=== PATIENT | male | born 1965 | race African-American/Black ===

== ENCOUNTER 2021-01-07 09:43 | Inpatient (IN) ==
[2021-01-07] MEDS ORDERED: DEXTROSE 50% 25 GM/50 ML VIAL IV PRN (12:27)
[2021-01-07] MEDS ORDERED: ONDANSETRON 4 MG/2 ML VIAL IV PRN (12:32)
[2021-01-07 13:06] LABS: Basophils # 0.1 10*3/uL (0.0-0.2); Basophils % 1.4 % (0.0-0.8); Eosinophils % 0.4 % (0.00-10.9); Hematocrit 49.8 VOL% (42.0-52.0); Hemoglobin 17.6 GM/DL (14.0-18.0); Immature Granulocytes % 0.5 %; Immature Granulocytes Absolute 0.05 #; Lymphocytes # 1.5 10*3/uL (1.4-4.0); Lymphocytes % 14.8 % (21.2-54.2); Mean Corpuscular HGB Conc 35.3 GM/DL (32-36); Mean Corpuscular Volume 86.3 FL (87-102); Mean Platelet Volume 9.5 FL (9.6-12.0); Monocytes % 8.8 % (1.7-12.7); NRBC # 0.04 10*3/uL; Neutrophils % 74.1 % (38.7-73.9); Platelet Count 241 T/CUMM (130-400); Red Blood Count 5.77 MC/CUMM (3.8-5.5); White Blood Count 10.1 T/CUMM (4-12)
[2021-01-07 13:29] LABS: Albumin 3.5 G/DL (3.4-5.0); Bilirubin,Total 0.8 MG/DL (0.2-1.0); Osmolality,Calculated 265.5 MOS/KG (273-304); Potassium 4.3 MMOL/L (3.5-5.1); Total Protein 8.2 G/DL (6.4-8.2)
[2021-01-07] MEDS: FUROSEMIDE 40 MG/4 ML VIAL IV SCH (15:32)
[2021-01-07] MEDS: LEVOFLOXACIN INJ 750 MG in PREMIX 1 EACH IV SCH (15:33)
[2021-01-07] MEDS ORDERED: hydrALAZINE 20 MG/1 ML VIAL IV PRN (16:31)
[2021-01-07] MEDS: METOPROLOL TARTRATE 50 MG TABLET PO SCH (20:41)
[2021-01-07] MEDS: allopurinoL 100 MG TABLET PO SCH (20:41)
[2021-01-07] MEDS: ACETAMINOPHEN 325 MG TABLET PO PRN (20:46)
[2021-01-07] MEDS ORDERED: carvediloL 3.125 MG TABLET PO SCH (21:00)
[2021-01-08 05:36] LABS: Basophils # 0.1 10*3/uL (0.0-0.2); Basophils % 1.1 % (0.0-0.8); Eosinophils % 0.3 % (0.00-10.9); Hematocrit 48.1 VOL% (42.0-52.0); Hemoglobin 17.1 GM/DL (14.0-18.0); Immature Granulocytes % 0.5 %; Immature Granulocytes Absolute 0.05 #; Lymphocytes # 1.6 10*3/uL (1.4-4.0); Lymphocytes % 15.6 % (21.2-54.2); Mean Corpuscular HGB Conc 35.6 GM/DL (32-36); Mean Corpuscular Volume 85.6 FL (87-102); Mean Platelet Volume 10.3 FL (9.6-12.0); Monocytes % 11.6 % (1.7-12.7); NRBC # 0.04 10*3/uL; Neutrophils % 70.9 % (38.7-73.9); Platelet Count 207 T/CUMM (130-400); Red Blood Count 5.62 MC/CUMM (3.8-5.5); Red Cell Distribution Width 13.7 % (9.3-17.3); White Blood Count 10.4 T/CUMM (4-12)
[2021-01-08 05:55] LABS: Calcium 8.8 MG/DL (8.5-10.1); Osmolality,Calculated 265.4 MOS/KG (273-304); Potassium 3.3 MMOL/L (3.5-5.1)
[2021-01-08 05:59] LABS: Albumin 2.9 G/DL (3.4-5.0); Bilirubin,Direct 0.25 MG/DL (0.0-0.20); Bilirubin,Indirect 1.4 MG/DL (0.0-1.0); Bilirubin,Total 1.6 MG/DL (0.2-1.0); Total Protein 7.3 G/DL (6.4-8.2)
[2021-01-08] MEDS ORDERED: POTASSIUM CHLORIDE 20 MEQ TABLET PO PRN (08:29)
[2021-01-08] MEDS ORDERED: LISINOPRIL/HCTZ 20-25 MG TABLET PO SCH (09:00)
[2021-01-08] MEDS ORDERED: amLODIPine 5 MG TABLET PO SCH (09:00)
[2021-01-08] MEDS: FUROSEMIDE 40 MG/4 ML VIAL IV SCH ×2 (09:16→15:24)
[2021-01-08] MEDS: LEVOFLOXACIN INJ 750 MG in PREMIX 1 EACH IV SCH (09:19)
[2021-01-08] MEDS: allopurinoL 100 MG TABLET PO SCH ×2 (09:19→20:32)
[2021-01-08] MEDS: METOPROLOL TARTRATE 50 MG TABLET PO SCH (09:19)
[2021-01-08] MEDS ORDERED: POTASSIUM CHLORIDE 20 MEQ TABLET PO ONE (11:00)
[2021-01-08] MEDS: SPIRONOLACTONE 25 MG TABLET PO SCH (11:30)
[2021-01-08] MEDS: ACETAMINOPHEN 325 MG TABLET PO PRN (15:24)
[2021-01-08] MEDS ORDERED: DOXAZOSIN 2 MG TABLET PO SCH (21:00)
[2021-01-09 05:19] LABS: Calcium 9.2 MG/DL (8.5-10.1); Osmolality,Calculated 271.2 MOS/KG (273-304); Potassium 3.3 MMOL/L (3.5-5.1)
[2021-01-09 07:36] VITALS: BP 152/91
[2021-01-09] MEDS ORDERED: ERGOCALCIFEROL 50,000 UNIT CAPSULE PO ONE (08:03)
[2021-01-09] MEDS: FUROSEMIDE 40 MG/4 ML VIAL IV SCH (08:34)
[2021-01-09] MEDS: allopurinoL 100 MG TABLET PO SCH (08:34)
[2021-01-09] MEDS: SPIRONOLACTONE 25 MG TABLET PO SCH (08:34)
[2021-01-09] MEDS: LEVOFLOXACIN INJ 750 MG in PREMIX 1 EACH IV SCH (08:41)
[2021-01-09] MEDS ORDERED: CHOLECALCIFEROL 1,000 UNIT TABLET PO SCH (09:00)
[2021-01-09] MEDS ORDERED: lisinopriL 10 MG TABLET PO SCH (09:00)
[2021-01-09] MEDS ORDERED: FUROSEMIDE 40 MG TABLET PO SCH (16:00)
[2021-01-10] MEDS ORDERED: LEVOFLOXACIN 500 MG TABLET PO SCH (09:00)
== END 2021-01-09 12:29 | disposition home or self-care (01) | DRG 291 ==
LOC: N.5E → SUATTDRO 11:58
PROVIDERS: ADMIT Internal Medicine; ATTEND Hospitalist